=== PATIENT | female | born 2000 | race Caucasian/White ===

== ENCOUNTER → 2024-04-13 14:13 | Outpatient (REF) | payer OTHER, SELFPAY | LOC: WDC 14:13 | PROVIDERS: ATTENDING PHYSICIAN Internal Medicine | DX: L72.0 Epidermal cyst (principal) | CPT/HCPCS: 76642 ==

== ENCOUNTER → 2024-04-17 10:23 | Outpatient (REF) | payer OTHER, SELFPAY | LOC: RCS 10:23 | PROVIDERS: ATTENDING PHYSICIAN Internal Medicine | DX: R00.2 Palpitations (principal) | CPT/HCPCS: 93225; 93226 ==